=== PATIENT | male | born 2000 | race Caucasian/White ===

== ENCOUNTER 2024-04-20 12:27 | Emergency (ER) | payer MEDICAID ==
[~2024-04-20] VITALS: Ht 177.8 cm; Wt 82.0 kg
[2024-04-20 12:37] VITALS: BP 123/71; TEMP 98.3; O2SAT 97
[2024-04-20 12:39] VITALS: PULSE 66; RESP 18; O2SAT 98
== END 2024-04-20 15:36 | disposition left against medical advice (07) ==
LOC: ER 12:27
DX: M54.9 Dorsalgia, unspecified (principal); Z53.21 Procedure and treatment not carried out due to patient leaving prior to being seen by health care provider